=== PATIENT | male | born 1975 | race Two or more races ===

== ENCOUNTER 2022-07-15 21:58 | Emergency (ER) | payer MEDICAID ==
[~2022-07-15] VITALS: Ht 177.8 cm; Wt 99.0 kg
[2022-07-15 23:56] LABS: Basophils # (auto) 0.1 10 ^3/uL (0-0.2); Basophils % (auto) 0.8 % (0.0-2.0); Eosinophils # (auto) 0.3 10 ^3/uL (0-0.8); Eosinophils % (auto) 3.4 % (0.0-7.0); Hemoglobin 15.5 g/dL (13.5-17.5); Lymphocytes # (auto) 2.6 10 ^3/uL (0.4-5.4); Lymphocytes % (auto) 30.1 % (10.0-50.0); Mean Corpuscular Hemoglobin 30.8 pg (28.0-32.0); Mean Corpuscular Hgb Conc. 33.7 g/dL (32.0-36.0); Mean Corpuscular Volume 91.6 fL (80.0-100.0); Monocytes # (auto) 1.3 10 ^3/uL (0-1.3); Monocytes % (auto) 14.5 % (0.0-12.0); Neutrophils # (auto) 4.4 10 ^3/uL (1.6-8.6); Neutrophils % (auto) 51.2 % (37.0-80.0); Nucleated Red Blood Cells % 0.1 %; Red Blood Cells 5.03 10^6/uL (4.5-5.90); Red Cell Distribution Width 13.1 % (11.8-14.3); White Blood Cell 8.7 10^3/uL (4.4-10.8)
[2022-07-15 23:59] LABS: Albumin 3.9 g/dL (3.4-5.0); BUN/Creatinine Ratio 11.2; Potassium 3.8 mmol/L (3.5-5.1)
[2022-07-16 00:02] LABS: Bilirubin, Total 0.5 mg/dL (0.2-1.0); Total Protein 8.3 g/dL (6.4-8.2)
[2022-07-16] MEDS ORDERED: DOXY100C PO (09:22)
[2022-07-16] MEDS ORDERED: DEXT1SYP9 PO (09:22)
[2022-07-16 09:40] VITALS: BP 134/95
== END 2022-07-16 09:50 | disposition home or self-care (01) ==
LOC: ER 22:02
DX: J40 Bronchitis, not specified as acute or chronic (principal); J02.9 Acute pharyngitis, unspecified; Z88.1 Allergy status to other antibiotic agents; Z88.5 Allergy status to narcotic agent; Z20.822 Contact with and (suspected) exposure to COVID-19
CPT/HCPCS: 36415; 71045; 80053; 83690; 85025; 87426; 87804

== ENCOUNTER 2022-10-31 14:08 | Emergency (ER) | payer MEDICAID ==
[~2022-10-31] VITALS: Ht 177.8 cm; Wt 92.2 kg
[~2022-10-31 14:08] MED LIST: DEXT1SYP9 PO; DOXY100C PO
[2022-10-31 15:19] VITALS: BP 131/84
[2022-10-31] MEDS ORDERED: CEPH-510 PO (15:41)
== END 2022-10-31 16:00 | disposition home or self-care (01) ==
LOC: ER 14:08
DX: L03.011 Cellulitis of right finger (principal); Z88.1 Allergy status to other antibiotic agents; Z88.6 Allergy status to analgesic agent

== ENCOUNTER 2023-02-18 07:11 | Day surgery (SDC) | payer OTHER ==
[2023-02-13 10:35] LABS: Basophils # (auto) 0.1 10 ^3/uL (0-0.2); Basophils % (auto) 1.2 % (0.0-2.0); Eosinophils # (auto) 0.2 10 ^3/uL (0-0.8); Eosinophils % (auto) 3.2 % (0.0-7.0); Hematocrit 43.8 % (41.0-53.0); Hemoglobin 14.9 g/dL (13.5-17.5); Lymphocytes # (auto) 2.8 10 ^3/uL (0.4-5.4); Lymphocytes % (auto) 40.8 % (10.0-50.0); Mean Corpuscular Hemoglobin 31.5 pg (28.0-32.0); Mean Corpuscular Hgb Conc. 34.1 g/dL (32.0-36.0); Mean Corpuscular Volume 92.5 fL (80.0-100.0); Monocytes # (auto) 0.7 10 ^3/uL (0-1.3); Monocytes % (auto) 9.6 % (0.0-12.0); Neutrophils # (auto) 3.1 10 ^3/uL (1.6-8.6); Neutrophils % (auto) 45.2 % (37.0-80.0); Nucleated Red Blood Cells % 0.2 %; Red Blood Cells 4.74 10^6/uL (4.5-5.90); Red Cell Distribution Width 12.8 % (11.8-14.3); White Blood Cell 6.9 10^3/uL (4.4-10.8)
[2023-02-13 10:57] LABS: Urine Bacteria NONE SEEN /hpf (None Seen); Urine Blood Negative /uL (Negative); Urine Mucus FEW (None Seen); Urine Specific Gravity 1.018 (1.001-1.035); Urine WBC <1 /hpf (0 - 3)
[2023-02-13 10:58] LABS: INR 1.04 (0.9-1.15); Partial Thromboplastin Time 30.9 SEC (24.5-34.5)
[2023-02-13 11:11] LABS: Potassium 4.4 mmol/L (3.5-5.1)
[2023-02-13 11:20] LABS: Albumin 3.7 g/dL (3.4-5.0); BUN/Creatinine Ratio 14.6 (10.0-20.0); Bilirubin, Total 0.2 mg/dL (0.2-1.0); Calcium 8.7 mg/dL (8.5-10.1)
[~2023-02-18] VITALS: Ht 177.8 cm; Wt 96.6 kg
[2023-02-18] MEDS ORDERED: ceFAZolin 1GM/50ML 100 ML IV ONE (08:37)
[2023-02-18 08:44] VITALS: TEMP 97.9
[2023-02-18] MEDS ORDERED: KETOROLAC TROMETH 30 MG/ML 1ML VIAL ONE (08:50)
[2023-02-18] MEDS ORDERED: DexAMETHasone SOD PHOS 10MG/1ML VIAL INJ ONE (08:50)
[2023-02-18] MEDS ORDERED: PROPOFOL 10 MG/ML 20 ML IV ONE ×2 (08:50→10:10)
[2023-02-18] MEDS ORDERED: GLYCOPYRROLATE 0.2 MG/ML 1ML VIAL ONE (08:50)
[2023-02-18] MEDS ORDERED: LIDOCAINE 2% (LOCAL ANESTH.) PF 5ml SDV ONE (09:05)
[2023-02-18] MEDS ORDERED: BUPIVACAINE W/ EPINEPH 0.5% INJ 50ML MDV IJ ONE (09:33)
[2023-02-18] MEDS ORDERED: ROPIVACAINE 0.5% (5MG/ML) 20ML AMPULE IJ ONE (09:38)
[2023-02-18] MEDS ORDERED: BACITRACIN TOP OINT 1 UD PKG TOP ONE (09:38)
[2023-02-18] MEDS ORDERED: ONDANSETRON HCL 4 MG/2 ML VIAL ONE (09:45)
[2023-02-18] MEDS ORDERED: fentaNYL CITRATE 100 MCG/2 ML VL ONE (10:13)
[2023-02-18] MEDS ORDERED: ePHEDrine SULFATE 50 MG/ML AMP ONE (10:31)
[2023-02-18] MEDS ORDERED: methylPREDNISolone ACETATE 80 MG/ML VL ONE (10:39)
[2023-02-18] MEDS ORDERED: FLUMAZENIL 0.1 MG/ML INJ 10ML MDV IV PRN (11:00)
[2023-02-18] MEDS ORDERED: ePHEDrine SULFATE 50 MG/ML AMP IV PRN (11:00)
[2023-02-18] MEDS ORDERED: ONDANSETRON HCL 4 MG/2 ML VIAL IV PRN (11:00)
[2023-02-18] MEDS ORDERED: LABETALOL HCL 5 MG/ML 4ML SYRINGE IV PRN (11:00)
[2023-02-18] MEDS ORDERED: NALOXONE HCL 0.4 MG/ML VIAL IV PRN (11:00)
[2023-02-18] MEDS ORDERED: oxyCODONE HCL 5MG TAB PO PRN (11:00)
[2023-02-18] MEDS ORDERED: hydrALAZINE HCL 20 MG/ML VL IV PRN (11:00)
[2023-02-18] MEDS ORDERED: fentaNYL CITRATE 100 MCG/2 ML VL IV PRN (11:00)
[2023-02-18] MEDS ORDERED: HYDROmorphone HCL 2 MG/ML VL/or syr IV PRN (11:00)
[2023-02-18] MEDS ORDERED: HYDROmorphone HCL 2 MG/ML VL/or syr ONE (11:15)
[2023-02-18 11:45] VITALS: BP 129/79; PULSE 72; RESP 19; O2SAT 98
== END 2023-02-18 12:15 | disposition home or self-care (01) ==
LOC: SUR 07:11
PROVIDERS: ATTEND Podiatrist Foot & Ankle Surgery
DX: M65.872 Other synovitis and tenosynovitis, left ankle and foot (principal); M19.072 Primary osteoarthritis, left ankle and foot; M77.52 Other enthesopathy of left foot and ankle; J45.909 Unspecified asthma, uncomplicated; Z88.1 Allergy status to other antibiotic agents; Z88.5 Allergy status to narcotic agent; Z87.01 Personal history of pneumonia (recurrent); Z98.890 Other specified postprocedural states
CPT/HCPCS: 29895; 36415; 80053; 81001; 85025; 85610; 85730; 88305; J0690; J1040; J1100; J1170; J1885; J2001; J2405; J2704; J2795